=== PATIENT | female | born 1990 | race Hispanic/Latino ===

== ENCOUNTER → 2022-05-18 | Outpatient (CLI) | payer MEDICAID ==
[~2022-05-18] MED LIST: GADOTERATE MEGLUMINE 10 MMOL/20 ML VIAL IV ONE
== END | disposition home or self-care (01) ==
LOC: RAH 14:47
PROVIDERS: ATTEND Family Medicine
DX: R46.89 Other symptoms and signs involving appearance and behavior (principal); Q89.8 Other specified congenital malformations
CPT/HCPCS: 70553; A9575

== ENCOUNTER → 2022-12-26 | Outpatient (CLI) | payer MEDICAID | END | disposition home or self-care (01) | LOC: RAH 09:42 | PROVIDERS: ATTEND Family Medicine | DX: Q28.3 Other malformations of cerebral vessels (principal) | CPT/HCPCS: 70553; A9575 ==